=== PATIENT | female | born 1940 | race African-American/Black ===

== ENCOUNTER 2017-04-02 09:26 | Outpatient (CLI) | payer MEDICARE ==
--- NOTE | 2017-04-02 11:41 | Ultrasound Report ---
ULTRASOUND ABDOMEN COMPLETE: Technique: Transabdominal ultrasound with color Doppler interrogation. History: abdominal pain. Findings: The liver parenchyma is echogenic consistent with fatty infiltration. No focal liver mass or surface nodularity. The gallbladder dimensions are within normal limits without intraluminal stone, wall thickening, or pericholecystic fluid. The CBD is normal caliber. The visualized portions of the pancreas including the head and proximal body are within normal limits. The kidneys demonstrate no hydronephrosis or mass. Cortical thickness and echogenicity are within normal limits bilaterally. The spleen and aorta are within normal limits. No aneurysmal dilatation is noted. No ascites. IMPRESSION: Mild hepatic steatosis. Otherwise, unremarkable exam of the abdomen.
--- NOTE | 2017-04-02 13:38 | Mammography Report ---
BILATERAL DIGITAL SCREENING MAMMOGRAM with CAD : 04/02/17 09:26:00 CLINICAL: Routine screening. COMPARISON:10/24/15 FINDINGS: The breasts are heterogeneously dense, which may obscure small masses. No mass, architectural distortion or suspicious calcifications. IMPRESSION: No mammographic evidence of malignancy. BI-RADS CATEGORY: 2 -- Benign RECOMMENDATION: Routine mammographic screening in one year. COMMENT: Patient follow-up letters are generated by our [employer] application.
--- NOTE | 2017-04-02 13:48 | Mammography Report ---
BONE DEXA:04/02/17 09:26:00 CLINICAL: Postmenopausal. COMPARISON: 09/18/11 TECHNIQUE: Two site bone DEXA performed on an Hologic scanner. FINDINGS: The average BMD of the lumbar spine L1-L4 is 0.935g/cm squared with a T-score of -1.0 and a Z-score of 1.5. This compares to 0.830g/cm squared on the last exam and represents a +12.6% change from the previous baseline. The average BMD of the left forearm is 0.512g/cm squared with a T-score of -3.0 and a Z-score of -0.1. This compares to 0.501g/cm squared on the last exam and represents a +2.2% change from the previous baseline. IMPRESSION: 1. WHO classification: Normal with average fracture risk based on spine measurements. Moderate improvement in spine BMD compared to the prior exam. 2. WHO classification: Osteoporosis with I. fracture risk based on left forearm measurements. A modest improvement in forearm BMD compared to the prior exam. RECOMMENDATION: Clinical correlation and routine screening. DEFINITIONS: BMD = Bone Mineral Density T-score = BMD related to mean peak bone mass of young adult (mean expressed in Standard Deviation) Z-score = Age matched BMD expressed in SD World Health Organization (WHO) Diagnostic Criteria Normal T-score > -1 SD Osteopenia T-score between -1 and -2.4 SD Osteoporosis T-score -2.5 SD or below NOTE: BMD is not the only risk factor for fracture; also consider factors such as the patient's age, risk of falling, previous osteoporotic fracture, family history of osteoporotic fractures, current smoker, and low body weight. Z-scores are not calculated if >80 years of age.
== END 2017-04-02 09:27 | disposition home or self-care (01) ==
LOC: US 09:26
PROVIDERS: ATTEND Family Medicine
DX: Z12.31 Encounter for screening mammogram for malignant neoplasm of breast (principal); M81.0 Age-related osteoporosis without current pathological fracture; K76.0 Fatty (change of) liver, not elsewhere classified; Z78.0 Asymptomatic menopausal state
CPT/HCPCS: 76700; 77080; G0202; 77067

== ENCOUNTER 2018-04-03 09:37 | Outpatient (CLI) | payer MEDICARE ==
--- NOTE | 2018-04-03 15:23 | Mammography Report ---
Bilateral mammogram: Compared to 04/02/17 and 10/24/15. CAD study utilized. Findings: Predominance adipose tissue bilaterally. Benign calcifications. New focal asymmetry noted at outer posterior and upper mid right breast. No microcalcifications. Normal axilla. Impression New focal asymmetries right breast. Recommend spot compression and if necessary sonographic examination. BI-RADS CATEGORY: 0 = Needs additional imaging evaluation ACR BI-RADS MAMMOGRAPHIC CODES: 0 = Needs additional imaging evaluation; 1 = Negative; 2 = Benign; 3 = Probably benign; 4 = Suspicious; 5 = Malignant; 6 = Known biopsy-proven malignancy COMMENT: 1. Dense breast tissue, i.e., adenosis, fibrocystic changes, etc., may obscure an underlying neoplasm. 2. Approximately 10% of cancers are not detected with mammography. 3. A negative mammography report should not delay biopsy if a clinically suspicious mass is present. COMMENT: Patient follow-up letters are generated in [employer].
== END 2018-04-03 09:38 | disposition home or self-care (01) ==
LOC: MAMMO 09:37
PROVIDERS: ATTEND Family Medicine
DX: Z12.31 Encounter for screening mammogram for malignant neoplasm of breast (principal); E78.00 Pure hypercholesterolemia, unspecified; I10 Essential (primary) hypertension; E03.9 Hypothyroidism, unspecified
CPT/HCPCS: 77067

== ENCOUNTER 2018-09-18 08:00 | Outpatient (CLI) | payer MEDICARE ==
--- NOTE | 2018-09-18 13:01 | Ultrasound Report ---
ULTRASOUND PELVIC COMPLETE HISTORY: Vaginal bleeding, pelvic mass. COMPARISON: No relevant comparisons at this facility. TECHNIQUE: Transabdominal ultrasound with color doppler interrogation. FINDINGS: Uterus: The uterus is retroverted and atrophic measuring 4.6 x 2.9 x 3.1 cm. No uterine masses appreciated. Endometrium: The endometrium is poorly visualized. Having said that, I believe the endometrium measures 1 cm in thickness. No endometrial fluid collection. Right ovary: 2.2 x 1.2 x 2.2 cm. Left ovary: 2.6 x 2.2 x 1.2 cm. No pelvic fluid or mass is identified. Normal color doppler interrogation. IMPRESSION: Limited exam with only transabdominal images. The measurement of the endometrium was made at 1 cm in thickness which is abnormal for postmenopausal patient. Consider additional transvaginal imaging or pelvic MRI if additional imaging is needed.
== END 2018-09-18 08:01 | disposition home or self-care (01) ==
LOC: US 08:00
PROVIDERS: ATTEND Family Medicine
DX: R19.00 Intra-abdominal and pelvic swelling, mass and lump, unspecified site (principal); E78.00 Pure hypercholesterolemia, unspecified; I10 Essential (primary) hypertension; E03.9 Hypothyroidism, unspecified
CPT/HCPCS: 76856